=== PATIENT | male | born 1970 | race Two or more races ===

== ENCOUNTER 2016-08-29 16:39 | Emergency (ER) | payer SELFPAY ==
[~2016-08-29] VITALS: Ht 170.2 cm; Wt 70.0 kg
[2016-08-29 16:44] VITALS: BP 130/95
[2016-08-29] MEDS ORDERED: BACITRACIN ZINC OINT UDPKT TOP ONE (20:30)
== END 2016-08-29 20:45 | disposition left against medical advice (07) ==
LOC: EDSEX 16:39 → ER 16:43
DX: S01.01XA Laceration without foreign body of scalp, initial encounter (principal); S40.022A Contusion of left upper arm, initial encounter; F10.129 Alcohol abuse with intoxication, unspecified; Y09 Assault by unspecified means; Y93.89 Activity, other specified; Y92.9 Unspecified place or not applicable; Y99.8 Other external cause status
CPT/HCPCS: 12002; 99283; X7700; Z7610